=== PATIENT | female | born 1970 | race Caucasian/White ===

== ENCOUNTER 2019-10-04 14:00 | Emergency (ER) | payer MEDICAID ==
--- NOTE | 2019-10-04 14:20 | ED Physician Documentation ---
History of Present Illness - Stated complaint Stated Complaint: LT LEG PX - Chief complaint Chief Complaint: Trauma Ext - History obtained from History obtained from: Patient - Additonal information Additional information: 49-year-old woman with borderline diabetes and hypertension but no history of DVT or PE traveled out by car from [place] and both legs swelled in the car but subsequently the left leg never went down. The right leg is better. Complains of pain in the posterior leg and popliteal fossa. Declines pain medication on initial evaluation. No chest pain or trouble breathing. Review of Systems Constitutional: denies: Fever, Chills, Fatigue Cardiac: denies: Chest pain / pressure, Palpitations Respiratory: denies: Dyspnea, Cough PD PAST MEDICAL HISTORY - Present Medications Home Medications: Ambulatory Orders Medication Instructions Recorded Confirmed Amlodipine Besylate 5 mg PO DAILY 10/04/19 10/04/19 Hydrochlorothiazide 12.5 mg PO QPM #90 tablet 10/04/19 Losartan/Hydrochlorothiazide 1 each PO DAILY 10/04/19 10/04/19 [Losartan-Hctz 100-12.5 mg Tab] Metformin HCl [Metformin HCl ER] 500 mg PO DAILY 10/04/19 10/04/19 Omeprazole 40 mg PO DAILY 10/04/19 10/04/19 PARoxetine HCL [Paroxetine HCl] 10 mg PO DAILY 10/04/19 10/04/19 SITagliptin [Januvia] 100 mg PO DAILY 10/04/19 10/04/19 Simvastatin 40 mg PO DAILY 10/04/19 10/04/19 - Allergies Allergies/Adverse Reactions: Allergies Allergy/AdvReac Type Severity Reaction Status Date / Time adhesive tape Allergy Rash Verified 10/04/19 14:20 amoxicillin Allergy Rash Verified 10/04/19 14:19 bacitracin Allergy Rash Verified 10/04/19 14:20 [From Neosporin ([id number])] neomycin Allergy Rash Verified 10/04/19 14:20 [From Neosporin ([id number])] peach Allergy Rash Verified 10/04/19 14:20 polymyxin B Allergy Rash Verified 10/04/19 14:20 [From Neosporin ([id number])] PD ED PE NORMAL - Vitals Vital signs reviewed: Yes - General General: Alert and oriented X 3, No acute distress - HEENT HEENT: PERRL, EOMI - Neck Neck: Supple, no meningeal sign, No bony TTP - Extremities Extremities: Other (Mild tenderness of the left calf and popliteal fossa without obvious asymmetric edema. Normal cap refill in the left leg.) - Neuro Neuro: Alert and oriented X 3, Normal speech Results - Vitals Vitals: Vital Signs - 24 hr 10/04/19 14:13 Temperature 36.5 C Heart Rate 73 Respiratory 16 Rate Blood Pressure 178/93 H O2 Saturation 98 Oxygen O2 Source Room air - Labs Labs: Laboratory Tests 10/04/19 10/04/19 10/04/19 14:20 14:46 14:46 WBC 6.1 RBC 5.05 Hgb 14.0 Hct 43.9 MCV 86.9 MCH 27.7 MCHC 31.9 L RDW 13.9 Plt Count 231 MPV 9.7 Neut # (Auto) 3.6 Lymph # (Auto) 2.0 [place] # (Auto) 0.4 Eos # (Auto) 0.1 Baso # (Auto) 0.0 Absolute Nucleated RBC 0.00 Nucleated RBC % 0.0 PT 11.7 INR 1.0 Sodium Potassium Chloride Carbon Dioxide Anion Gap BUN Creatinine Estimated GFR (MDRD) Glucose Calcium Urine Color YELLOW Urine Clarity TURBID Urine pH 5.5 Ur Specific [place] >=1.030 H Urine Protein NEGATIVE Urine Glucose (UA) 500 H Urine Ketones NEGATIVE Urine Occult Blood NEGATIVE Urine Nitrite NEGATIVE Urine Bilirubin NEGATIVE Urine Urobilinogen 0.2 (NORMAL) Ur Leukocyte Esterase NEGATIVE Urine RBC 0-5 Urine WBC 0-3 Ur Squamous Epith Cells FEW Squamous Amorphous Sediment Marked Urine Bacteria None Seen Ur Microscopic Review INDICATED Urine Culture Comments NOT INDICATED 10/04/19 14:46 WBC RBC Hgb Hct MCV MCH MCHC RDW Plt Count MPV Neut # (Auto) Lymph # (Auto) [place] # (Auto) Eos # (Auto) Baso # (Auto) Absolute Nucleated RBC Nucleated RBC % PT INR Sodium 136 Potassium 4.0 Chloride 101 Carbon Dioxide 25 Anion Gap 10.0 BUN 9 Creatinine 0.7 Estimated GFR (MDRD) 89 Glucose 215 H Calcium 9.5 Urine Color Urine Clarity Urine pH Ur Specific [place] Urine Protein Urine Glucose (UA) Urine Ketones Urine Occult Blood Urine Nitrite Urine Bilirubin Urine Urobilinogen Ur Leukocyte Esterase Urine RBC Urine WBC Ur Squamous Epith Cells Amorphous Sediment Urine Bacteria Ur Microscopic Review Urine Culture Comments - Rads (name of study) DVT sono Radiology: Prelim report reviewed PD MEDICAL DECISION MAKING - ED course ED course: 49-year-old woman traveling complains of left leg pain and swelling. Found to have Marcelino's cyst on ultrasound. She did have a vaginal burning which was not personally examined by me but description consistent with yeast candidiasis and given Diflucan for same. She wanted to increase her hydrochlorothiazide for the swelling, she is on a combination losartan hydrochlorothiazide pill, will double it by allowing her to have a prescription for just the hydrochlorothiazide, 12.5 mg at night. Departure - Departure Disposition: 01 Home, Self Care Clinical Impression: Left leg swelling Bakers cyst Qualifiers: Laterality: left Qualified Code(s): M71.22 - Synovial cyst of popliteal space [Marcelino], left knee Condition: Good Record reviewed to determine appropriate education?: Yes Instructions: ED Cyst Marcelino Prescriptions: Hydrochlorothiazide 12.5 mg PO QPM #90 tablet Comments: Return as needed for new or worrisome symptoms. Follow-up with your doctor on return home.
[2019-10-04 14:54] LABS: BASOPHILS % (AUTO) 0.7 %; EOSINOPHILS # (AUTO) 0.1 10^3/uL (0.0-0.7); EOSINOPHILS % (AUTO) 1.6 %; LYMPHOCYTES % (AUTO) 33.2 %; MEAN CORPUSCULAR HEMOGLOBIN 27.7 pg (27.0-31.0); MEAN CORPUSCULAR HGB CONC 31.9 g/dL (32.0-36.0); MEAN CORPUSCULAR VOLUME 86.9 fL (81.0-99.0); MEAN PLATELET VOLUME 9.7 fL (7.9-10.8); MONOCYTES # (AUTO) 0.4 10^3/uL (0.0-1.0); NEUTROPHILS # (AUTO) 3.6 10^3/uL (1.5-6.6); NEUTROPHILS % (AUTO) 58.2 %; PLT - PLATELET COUNT 231 10^3/uL (130-450); RED BLOOD COUNT 5.05 10^6/uL (4.20-5.40); RED CELL DISTRIBUTION WIDTH 13.9 % (12.0-15.0); WHITE BLOOD COUNT 6.1 x10^3/uL (4.8-10.8)
[2019-10-04 15:01] LABS: PT - PROTHROMBIN TIME 11.7 secs (9.9-12.6)
[2019-10-04 15:04] LABS: CALCIUM 9.5 mg/dL (8.5-10.3); CREATININE 0.7 mg/dL (0.4-1.0)
[2019-10-04 15:24] LABS: BILIRUBIN,URINE NEGATIVE (NEGATIVE); GLUCOSE, URINE (UA) 500 mg/dL (NEGATIVE); KETONES,URINE (UA) NEGATIVE (NEGATIVE); LEUKOCYTE ESTERASE, URINE NEGATIVE (NEGATIVE); NITRITE,URINE NEGATIVE (NEGATIVE); OCCULT BLOOD,URINE NEGATIVE (NEGATIVE); PH,URINE 5.5 PH (5.0-7.5); PROTEIN,URINE NEGATIVE (NEGATIVE); UROBILINOGEN,URINE 0.2 (NORMAL) E.U./dL (NORMAL)
[2019-10-04 15:27] LABS: CLARITY,URINE TURBID (CLEAR)
[2019-10-04 15:34] LABS: AMORPHOUS SEDIMENT,UR Marked /LPF; BACTERIA,URINE None Seen /HPF (None Seen); RBC,URINE 0-5 /HPF (0-5); SQUAMOUS EPITHELIAL CELL,UR FEW Squamous (<= Few)
[2019-10-04] MEDS ORDERED: FLUCONAZOLE 100 MG TABLET PO STA (15:51)
[2019-10-04 16:01] VITALS: BP 170/88
--- NOTE | 2019-10-04 16:11 | Ultrasound Report ---
PROCEDURE: Duplex Ext Veins Left INDICATIONS: leg pain TECHNIQUE: Real-time imaging, as well as color and pulse Doppler interrogation, were performed of the lower extr emity deep veins from the inguinal ligament to the popliteal fossa. COMPARISON: None. FINDINGS: The deep veins are normally compressible, and free of intraluminal thrombus. Color and pu lse Doppler demonstrate normal phasic intraluminal flow. There is normal augmentation response to di stal compression maneuver. There is a small fluid collection in the posterior left popliteal fossa c ompatible with a Marcelino's cyst. This measures 1.4 x 0.7 x 2.2 cm. IMPRESSION: 1. Negative for deep venous thrombosis of the left lower extremity. 2. Likely 2.2 cm posterior left knee popliteal/Marcelino's cyst. Reviewed by: Shubham Duran MD on 10/04/2019 4:10 PM PDT Approved by: Shubham Duran MD on 10/04/2019 4:10 PM PDT Station ID: [id number]
== END 2019-10-04 16:02 | disposition home or self-care (01) ==
LOC: ED 14:00
DX: R60.0 Localized edema (principal); M71.22 Synovial cyst of popliteal space [Baker], left knee; N89.8 Other specified noninflammatory disorders of vagina; I10 Essential (primary) hypertension; R73.03 Prediabetes
CPT/HCPCS: 80048; 81001; 85025; 85610; 93971; 99283; 99284; A9270; 81003; 87086